=== PATIENT | female | born 1965 | race Caucasian/White ===

== ENCOUNTER 2020-02-01 15:44 | Emergency (ER) | payer BC ==
[~2020-02-01] VITALS: Ht 147.3 cm; Wt 96.4 kg
[~2020-02-01 15:44] MED LIST: CALC600T69 PO; CYCL-1 PO; KRIL1CAP22 PO
[2020-02-01] MEDS ORDERED: ondansetron/PF 4mg/2ml inj IV ONE (16:10)
[2020-02-01 16:28] LABS: BASOPHILS % (AUTO) 0.2 % (0-1); EOSINOPHILS % (AUTO) 0.3 % (0-6); HEMATOCRIT 46.4 % (35.0-45.0); HEMOGLOBIN 15.8 g/dl (12.0-16.0); LYMPHOCYTES # (AUTO) 1.5 X10'3 (1.1-4.8); LYMPHOCYTES % (AUTO) 10.2 % (21-51); MEAN CORPUSCULAR HEMOGLOBIN 27.7 PG (27.0-31.0); MEAN CORPUSCULAR HGB CONC 33.9 g/dL (33.0-36.5); MEAN CORPUSCULAR VOLUME 81.5 FL (78-98); MEAN PLATELET VOLUME 7.6 FL (7.4-10.4); MONOCYTES # (AUTO) 0.4 X10'3 (0-0.9); MONOCYTES % (AUTO) 2.4 % (2-12); NEUTROPHILS # (AUTO) 12.9 X10'3 (1.8-7.7); NEUTROPHILS % (AUTO) 86.9 % (42-75); PLATELET COUNT 280 X10'3 (140-440); WHITE BLOOD COUNT 14.9 X10'3 (4.5-11.0)
--- NOTE | 2020-02-01 16:42 | NUR ---
: Louis Manzo [phone]
[2020-02-01 16:44] LABS: ALANINE AMINOTRANSFERASE 51 U/L (12-78); ALBUMIN 4.7 G/DL (3.4-5.0); ALBUMIN/GLOBULIN RATIO 1.3 (1.1-1.5); ALKALINE PHOSPHATASE 88 IU/L (46-116); ANION GAP 7 (8-16); ASPARTATE AMINO TRANSFERASE 37 U/L (10-37); BILIRUBIN,TOTAL 0.6 MG/DL (0.1-1.0); BLOOD UREA NITROGEN 9 MG/DL (7-18); BUN/CREATININE RATIO 11.5 (6.6-38.0); CHLORIDE 101 MMOL/L (99-107); CREATININE 0.78 MG/DL (0.40-0.90); GLUCOSE 162 MG/DL (70-104); POTASSIUM 4.1 MMOL/L (3.5-5.1); SODIUM 141 MMOL/L (135-145); TOTAL CARBON DIOXIDE 33.3 MMOL/L (24-32); TOTAL PROTEIN 8.4 G/DL (6.4-8.2); eGFR 77 ML/MIN
[2020-02-01] MEDS ORDERED: normal saline 1000ml 1,000 ML IV ONE (16:45)
[2020-02-01] MEDS ORDERED: bisacodyl 5mg tablet.DR PO ONE (16:45)
[2020-02-01] MEDS ORDERED: glycerin ADULT rectal suppository RC ONE (16:45)
[2020-02-01 16:47] LABS: LIPASE 190 U/L (73-393); TROPONIN I < 0.04 NG/ML (0.0-0.05)
[2020-02-01] MEDS ORDERED: LIDOcaine Viscous 15ml cup MM ONE (18:05)
--- NOTE | 2020-02-01 18:28 | NUR ---
Attempted digital dissempaction. Two small hard pieces of stool removed. Pt reports "that hurts too much, please stop." Pt requested to attempt to have more bowel movement on her own prior to receiving the enema.
[2020-02-01] MEDS ORDERED: BISA-155 PO (18:30)
[2020-02-01] MEDS ORDERED: POLY119P2 PO (18:30)
[2020-02-01 18:46] LABS: CLARITY,URINE CLEAR (Clear); COLOR,URINE YELLOW (Yellow); GLUCOSE, URINE NEGATIVE (Neg); KETONES,URINE NEGATIVE (Neg); LEUKOCYTE ESTERASE ,URINE TRACE (Neg); NITRITES, URINE NEGATIVE (Neg); OCCULT BLOOD,URINE NEGATIVE (Neg); PH,URINE 7.5 (4.8-8.0); PROTEIN,URINE NEGATIVE (Neg); UROBILINOGEN,URINE 0.2 E.U/dL (0.2-1.0)
--- NOTE | 2020-02-01 18:50 | NUR ---
Sugar and baking soda enema completed. Pt tolerated well. Pt is sitting on the bedside commode at this time.
[2020-02-01 18:52] LABS: UA COLLECTION TYPE CLN CATCH MIDSTREAM
[2020-02-01 18:55] LABS: BACTERIA,URINE NONE SEEN /HPF (Neg); RBC,URINE NONE SEEN /HPF (0-2); RENAL CELLS, URINE MODERATE /HPF; SQUAMOUS EPITHELIAL CELL,UR MODERATE /LPF (FEW); WBC,URINE 0-4 /HPF (0-4)
--- NOTE | 2020-02-01 19:28 | NUR ---
Pt.'s has been called to pick pt. up
[2020-02-01 19:30] VITALS: BP 103/67
== END 2020-02-01 19:39 | disposition home or self-care (01) ==
LOC: ER 15:44
DX: K56.41 Fecal impaction (principal); E78.00 Pure hypercholesterolemia, unspecified; R11.10 Vomiting, unspecified; Z90.89 Acquired absence of other organs
CPT/HCPCS: 36415; 74176; 80053; 81001; 83605; 83690; 84484; 85025; 87088; 96361; 96374; 99285; J2405; J7030